=== PATIENT | female | born 1970 | race Caucasian/White ===

== ENCOUNTER 2022-10-29 18:15 | Emergency (ER) | payer SELFPAY ==
[2022-10-29 19:11] VITALS: BP 177/103; PULSE 78; RESP 20; TEMP 98.1; BMI 26.6
[2022-10-29 19:44] LABS: HEMATOCRIT 42.4 % (32.4-45.2); HEMOGLOBIN 14.4 G/dL (10.7-15.3); MCH 29.2 pg (25.7-33.7); MEAN CELL VOLUME 85.8 fl (80-96); MEAN PLT VOLUME 8.1 fl (7.5-11.1); PLATELET COUNT 313.2 10^3/uL (134-434); RBC 4.94 10^6/uL (3.60-5.2); RDW 16.3 % (11.6-15.6); WHITE BLOOD COUNT 10.1 10^3/uL (4.0-10.8)
[2022-10-29 19:57] LABS: ALBUMIN 3.7 g/dl (3.4-5.0); BILIRUBIN,TOTAL 0.6 mg/dl (0.2-1); CREATININE 0.6 mg/dl (0.55-1.3); TOT PROT 7.3 g/dl (6.4-8.2)
== END 2022-10-29 20:59 | disposition home or self-care (01) ==
LOC: FER 18:15
DX: R10.84 Generalized abdominal pain (principal); R19.7 Diarrhea, unspecified
CPT/HCPCS: 36415; 80053; 85027; 87324; 87449; 99283-25